=== PATIENT | male | born 1975 | race American Indian/Alaskan Native ===

== ENCOUNTER 2016-12-03 21:21 | Emergency (ER) | payer MEDICAID, OTHER ==
[2016-12-03 21:40] VITALS: BP 146/101
--- NOTE | 2016-12-03 22:36 | EDM.PDOCBH ---
ED HPI GENERAL MEDICAL PROBLEM - General Chief Complaint: Drug or Alcohol Abuse Stated Complaint: EVAL Time Seen by Provider: 12/03/16 22:00 Source of Information: Reports: Patient, Police History Limitations: Reports: Intoxication - History of Present Illness INITIAL COMMENTS - FREE TEXT/NARRATIVE: 41-year-old male who was at detox today when he complained of "feeling sick". When he was transported to the hospital is soon as they pulled up on the ramp he jumped out of the car and ran away. He was found tonight intoxicated on the street. The police brought him in. He is now waking up and wants to go back to detox. Unfortunately they will take him back because of his history of lack of cooperation and flight risk. This was explained to the patient. Onset: Unknown/Unsure - Related Data Allergies Allergy/AdvReac Type Severity Reaction Status Date / Time No Known Allergies Allergy Verified 12/03/16 21:37 Home Meds: Home Meds *Seizure Medication PO TID 12/03/16 [History] Gabapentin [Neurontin] 300 mg PO QID 12/03/16 [History] Past Medical History Neurological History: Reports: Seizure Psychiatric History: Reports: Addiction Hematologic History: Reports: None Social & Family History - Tobacco Use Smoking Status *Q: Current Every Day Smoker Years of Tobacco use: 25 Packs/Tins Daily: 1 - Alcohol Use Days Per Week of Alcohol Use: 7 Number of Drinks Per Day: 10 Total Drinks Per Week: 70 - Recreational Drug Use Recreational Drug Use: Yes ED ROS GENERAL - Review of Systems Review Of Systems: See Below Constitutional: Denies: Fever Respiratory: Denies: Shortness of Breath Cardiovascular: Denies: Chest Pain GI/Abdominal: Reports: Nausea, Vomiting Skin: Reports: No Symptoms Neurological: Denies: Headache Psychiatric: Denies: Suicidal Ideation ED EXAM, BEHAVIORAL HEALTH - Physical Exam Exam: See Below Exam Limited By: Intoxication General Appearance: Alert, No Apparent Distress Eye Exam: Bilateral Eye: EOMI, Normal Inspection (No jaundice) Respiratory/Chest: No Respiratory Distress, Lungs Clear Cardiovascular: Regular Rate, Rhythm Neurological: Alert Psychiatric: Alert, Flat Affect Skin Exam: Warm, Dry COURSE, BEHAVIORAL HEALTH COMP - Course Vital Signs: Last Vital Signs Temp 97.0 F 12/03/16 21:43 Pulse 83 12/03/16 21:43 Resp 16 12/03/16 21:43 BP 146/101 H 12/03/16 21:43 Pulse Ox 94 L 12/03/16 21:43 Re-Assessment/Re-Exam: Patient is able to ambulate on his own, went to the bathroom and is physically stable. Unfortunately detox will not take him back at this time so he wanted to leave, he was discharged with instructions not to consume any additional alcohol. Departure - Departure Time of Disposition: 22:39 Disposition: Home, Self-Care 01 Condition: Fair Clinical Impression: Alcohol intoxication Qualifiers: Complication of substance-induced condition: uncomplicated Qualified Code(s): F10.920 - Alcohol use, unspecified with intoxication, uncomplicated - Discharge Information Instructions: Alcohol Intoxication, [id number] Referrals: PCP,None [Primary Care Provider] - Forms: ED Department Discharge Care Plan Goals: I would strongly recommend that you should avoid alcohol in the future.
== END 2016-12-03 22:40 | disposition home or self-care (01) ==
LOC: JP.ED 21:21
DX: F10.920 Alcohol use, unspecified with intoxication, uncomplicated (principal); F17.210 Nicotine dependence, cigarettes, uncomplicated
CPT/HCPCS: 99284

== ENCOUNTER 2016-12-04 00:20 | Emergency (ER) | payer MEDICAID, OTHER ==
--- NOTE | 2016-12-04 01:01 | EDM.PDOCBH ---
[id number]: MEDICAL [facility] Time Seen by Provider: 12/04/16 00:30 Source of Information: Reports: EMS History Limitations: Reports: Altered Mental Status, Intoxication - History of Present Illness INITIAL COMMENTS - FREE TEXT/NARRATIVE: 41-year-old male who was just discharged from the emergency room less than an hour and a half ago walked out to [facility] and promptly drank a bottle of Listerine drinking himself unconscious. Ambulance brought him back to the emergency room. He is responding to painful stimuli, is stable but very lethargic. Patient smells very strongly of mouthwash. Onset: Unknown/Unsure - Related Data Allergies Allergy/AdvReac Type Severity Reaction Status Date / Time No Known Allergies Allergy Verified 12/04/16 11:24 Home Meds: Home Meds *Seizure Medication PO TID 12/03/16 [History] Gabapentin [Neurontin] 300 mg PO QID 12/03/16 [History] Past Medical History Neurological History: Reports: Seizure Psychiatric History: Reports: Addiction Hematologic History: Reports: None Social & Family History - Tobacco Use Smoking Status *Q: Current Every Day Smoker Years of Tobacco use: 25 Packs/Tins Daily: 1 - Alcohol Use Days Per Week of Alcohol Use: 7 Number of Drinks Per Day: 10 Total Drinks Per Week: 70 - Recreational Drug Use Recreational Drug Use: No ED ROS GENERAL - Review of Systems Review Of Systems: Unable To Obtain ED EXAM, BEHAVIORAL HEALTH - Physical Exam Exam: See Below Exam Limited By: Altered Mental Status General Appearance: Obtunded Respiratory/Chest: No Respiratory Distress, Lungs Clear Cardiovascular: Regular Rate, Rhythm Neurological: Slow Response to Commands, Withdraws to Pain Skin Exam: Warm, Dry COURSE, BEHAVIORAL HEALTH COMP - Course Vital Signs: Last Vital Signs Temp 96.2 F 12/04/16 07:40 Pulse 85 12/04/16 07:40 Resp 18 12/04/16 07:40 BP 118/59 L 12/04/16 07:40 Pulse Ox 97 12/04/16 07:40 Orders, Labs, Meds: Laboratory Tests 12/04/16 12/04/16 12/04/16 Range/Units 00:22 00:23 00:23 WBC 6.8 (4.5-11.0) K/uL RBC 4.78 (4.30-5.90) M/uL Hgb 15.7 H (12.0-15.0) g/dL Hct 44.4 (40.0-54.0) % MCV 93 (80-98) fL MCH 33 H (27-31) pg MCHC 35 (32-36) % Plt Count 233 (150-400) K/uL Neut % (Auto) 38 (36-66) % Lymph % (Auto) 46 H (24-44) % Letcher % (Auto) 12 H (2-6) % Eos % (Auto) 0 L (2-4) % Baso % (Auto) 3 H (0-1) % Sodium 145 (140-148) mmol/L Potassium 3.3 L (3.6-5.2) mmol/L Chloride 107 (100-108) mmol/L Carbon Dioxide 27 (21-32) mmol/L Anion Gap 14.3 H (5.0-14.0) mmol/L BUN 6 L (7-18) mg/dL Creatinine 0.9 (0.8-1.3) mg/dL Est Cr Clr Drug Dosing 109.27 mL/min Estimated GFR (MDRD) > 60 (>60) Glucose 112 H (74-106) mg/dL Calcium 7.6 L (8.5-10.1) mg/dL Ethyl Alcohol 452 mg/dL Medications Discontinued Medications Generic Name Dose Route Start Last Admin Trade Name Freq PRN Reason Stop Dose Admin Acetaminophen 1,000 mg 12/04/16 05:31 12/04/16 05:37 Tylenol Extra Strength PO 12/04/16 05:32 1,000 mg ONETIME ONE Administration Acetaminophen 650 mg 12/04/16 07:36 12/04/16 07:45 Tylenol PO 12/04/16 07:37 Not Given NOW ONE Ibuprofen 600 mg 12/04/16 07:45 12/04/16 07:48 Motrin PO 12/04/16 07:46 600 mg ONETIME ONE Administration Ondansetron HCl 4 mg 12/04/16 08:00 12/04/16 08:05 Zofran IM 12/04/16 08:01 4 mg ONETIME ONE Administration Re-Assessment/Re-Exam: EtOH, BMP and CBC were obtained. EtOH was 0.452. The rest of his labs were close to normal. He became more awake for a period of time, attempted to urinate and even climbed out of bed at one point stumbling to the ground. At that point we put a mat on the floor and just let him sleep it off. Patient woke up in the morning, wanted some Tylenol for his headache and some phenobarbital for his seizure that was "coming". I reviewed his records and over the last 4 months he's either been in the emergency room in [place] for alcohol intoxication, a [facility] or in senior care. We called [facility] again and they did not want to take the patient back because of his record of leaving as soon as he is admitted. This was communicated to the patient and I encouraged him to try to find a ride back to his hometown. Departure - Departure Time of Disposition: 08:21 Disposition: Home, Self-Care 01 Condition: Fair Clinical Impression: Alcohol intoxication Qualifiers: Complication of substance-induced condition: uncomplicated Qualified Code(s): F10.920 - Alcohol use, unspecified with intoxication, uncomplicated - Discharge Information Instructions: Alcohol Intoxication, [id number] Referrals: PCP,None [Primary Care Provider] - Forms: ED Department Discharge Care Plan Goals: Avoid consuming alcohol in the future.
[2016-12-04] MEDS ORDERED: Acetaminophen 500 MG Tab PO ONE (05:31)
[2016-12-04 07:40] VITALS: BP 118/59
[2016-12-04] MEDS: Acetaminophen 325 MG Tab PO ONE ×2 (07:43→07:45)
[2016-12-04] MEDS ORDERED: Ibuprofen 600 MG Tab PO ONE (07:45)
[2016-12-04] MEDS ORDERED: Ondansetron 4 MG/2 ML SDV IM ONE (08:00)
== END 2016-12-04 08:21 | disposition home or self-care (01) ==
LOC: JP.ED 00:20
DX: F10.920 Alcohol use, unspecified with intoxication, uncomplicated (principal); F17.210 Nicotine dependence, cigarettes, uncomplicated; Y90.8 Blood alcohol level of 240 mg/100 ml or more
CPT/HCPCS: 36415; 80048; 85025; 99284; A9270; G0480; J2405

== ENCOUNTER 2016-12-04 10:55 | Emergency (ER) | payer MEDICAID, OTHER ==
[2016-12-04] MEDS ORDERED: Sodium Chloride 0.9% 1,000 ML IV SCH ×2 (11:00)
--- NOTE | 2016-12-04 11:08 | EDM.PDOC ---
<Greta Gaines - Last Filed: 12/04/16 17:25> ED HPI GENERAL MEDICAL PROBLEM - General Chief Complaint: Drug or Alcohol Abuse Stated Complaint: INTOXICATED VIA [facility] Time Seen by Provider: 12/04/16 11:08 Source of Information: Reports: Patient History Limitations: Reports: No Limitations - History of Present Illness INITIAL COMMENTS - FREE TEXT/NARRATIVE: pt arrived after he had drank 2 bottles of Listerine at [place]. He was pretty much unresponsive on arrival. He did have a etoh level of nearly .4 Onset: Today Duration: Hour(s): Associated Symptoms: Reports: Other (pt does have a history of seizures. ) - Related Data Allergies Allergy/AdvReac Type Severity Reaction Status Date / Time No Known Allergies Allergy Verified 12/04/16 11:24 Home Meds: Home Meds *Seizure Medication PO TID 12/03/16 [History] Gabapentin [Neurontin] 300 mg PO QID 12/03/16 [History] Past Medical History Neurological History: Reports: Seizure Psychiatric History: Reports: Addiction Hematologic History: Reports: None Social & Family History - Tobacco Use Smoking Status *Q: Current Every Day Smoker Years of Tobacco use: 25 Packs/Tins Daily: 1 - Alcohol Use Days Per Week of Alcohol Use: 7 Number of Drinks Per Day: 10 Total Drinks Per Week: 70 - Recreational Drug Use Recreational Drug Use: No ED ROS GENERAL - Review of Systems Review Of Systems: See Below Constitutional: Reports: No Symptoms HEENT: Reports: No Symptoms Respiratory: Reports: No Symptoms Cardiovascular: Reports: No Symptoms Endocrine: Reports: No Symptoms GI/Abdominal: Reports: No Symptoms : Reports: No Symptoms Musculoskeletal: Reports: Other (pt is concerned about his seizure. ) - Physical Exam Exam: See Below Text/Narrative:: Pt arrived very obtunded. His o2 sats dropped to 70.. He was moved to an acute unit and watched closely until he ws more awake. He was supplemented with 2 liters of 02. Exam Limited By: No Limitations General Appearance: Alert, Anxious Ears: Normal TMs Nose: Normal Inspection Throat/Mouth: Normal Inspection Head Exam: Atraumatic Neck: Normal Inspection Respiratory/Chest: No Respiratory Distress Cardiovascular: Regular Rate, Rhythm GI/Abdominal: Soft, Non-Tender (Male) Exam: Deferred Rectal (Males) Exam: Deferred Neuro Exam (Abbreviated): Alert, Normal Cognition, Other (pt did become alert after some of the etoh wore off. He than ate and was up and ambulating. ) Back Exam: Normal Inspection Extremities: Normal Inspection Psychiatric: Anxious Course - Vital Signs Last Recorded V/S: Last Vital Signs Temp 98.2 F 12/05/16 02:24 Pulse 76 12/05/16 02:24 Resp 16 12/05/16 02:24 BP 104/49 L 12/05/16 02:24 Pulse Ox 97 12/05/16 02:24 - Orders/Labs/Meds Orders: Active Orders 24 hr Category Date Time Status DRUG SCREEN, URINE [URCHEM] Stat Lab 12/05/16 06:21 Uncollected LORazepam [Ativan] Med 12/05/16 08:21 Active 1 mg PO Q4H PRN Medication Orders Sodium Chloride (Normal Saline) 1,000 mls @ 999 mls/hr IV ASDIRECTED JUAN Last Admin: 12/04/16 11:40 Dose: 999 mls/hr Sodium Chloride (Normal Saline) 1,000 mls @ 999 mls/hr IV ASDIRECTED JUAN Last Admin: 12/04/16 12:44 Dose: 999 mls/hr Lorazepam (Ativan) 1 mg PO Q4H PRN PRN Reason: Anxiety Last Admin: 12/05/16 08:32 Dose: 1 mg Labs: Laboratory Tests 12/04/16 12/04/16 12/05/16 Range/Units 11:07 12:20 06:32 WBC 5.8 (4.5-11.0) K/uL RBC 4.01 L (4.30-5.90) M/uL Hgb 13.4 D (12.0-15.0) g/dL Hct 37.1 L (40.0-54.0) % MCV 93 (80-98) fL MCH 33 H (27-31) pg MCHC 36 (32-36) % Plt Count 185 (150-400) K/uL Neut % (Auto) 64 (36-66) % Lymph % (Auto) 20 L (24-44) % Holt % (Auto) 12 H (2-6) % Eos % (Auto) 2 (2-4) % Baso % (Auto) 3 H (0-1) % Sodium (140-148) mmol/L Potassium (3.6-5.2) mmol/L Chloride (100-108) mmol/L Carbon Dioxide (21-32) mmol/L Anion Gap (5.0-14.0) mmol/L BUN (7-18) mg/dL Creatinine (0.8-1.3) mg/dL Est Cr Clr Drug Dosing mL/min Estimated GFR (MDRD) (>60) Glucose (74-106) mg/dL Calcium (8.5-10.1) mg/dL Total Bilirubin (0.2-1.0) mg/dL AST (15-37) U/L ALT (12-78) U/L Alkaline Phosphatase (46-116) U/L Total Protein (6.4-8.2) g/dL Albumin (3.4-5.0) g/dL Globulin (2.3-3.5) g/dL Albumin/Globulin Ratio (1.2-2.2) Ethyl Alcohol 397 366 mg/dL 12/05/16 12/05/16 Range/Units 06:32 06:32 WBC (4.5-11.0) K/uL RBC (4.30-5.90) M/uL Hgb (12.0-15.0) g/dL Hct (40.0-54.0) % MCV (80-98) fL MCH (27-31) pg MCHC (32-36) % Plt Count (150-400) K/uL Neut % (Auto) (36-66) % Lymph % (Auto) (24-44) % Holt % (Auto) (2-6) % Eos % (Auto) (2-4) % Baso % (Auto) (0-1) % Sodium 140 (140-148) mmol/L Potassium 3.3 L (3.6-5.2) mmol/L Chloride 105 (100-108) mmol/L Carbon Dioxide 29 (21-32) mmol/L Anion Gap 9.3 (5.0-14.0) mmol/L BUN 4 L (7-18) mg/dL Creatinine 0.7 L (0.8-1.3) mg/dL Est Cr Clr Drug Dosing 140.84 mL/min Estimated GFR (MDRD) > 60 (>60) Glucose 76 (74-106) mg/dL Calcium 7.7 L (8.5-10.1) mg/dL Total Bilirubin 0.9 (0.2-1.0) mg/dL AST 105 H (15-37) U/L ALT 99 H (12-78) U/L Alkaline Phosphatase 70 (46-116) U/L Total Protein 7.0 (6.4-8.2) g/dL Albumin 3.1 L (3.4-5.0) g/dL Globulin 3.9 H (2.3-3.5) g/dL Albumin/Globulin Ratio 0.8 L (1.2-2.2) Ethyl Alcohol 4 mg/dL Meds: Medications Generic Name Dose Route Start Last Admin Trade Name Freq PRN Reason Stop Dose Admin Sodium Chloride 1,000 mls @ 999 mls/hr 12/04/16 11:00 12/04/16 11:40 Normal Saline IV 999 mls/hr ASDIRECTED JUAN Administration Sodium Chloride 1,000 mls @ 999 mls/hr 12/04/16 11:00 12/04/16 12:44 Normal Saline IV 999 mls/hr ASDIRECTED JUAN Administration Lorazepam 1 mg 12/05/16 08:21 12/05/16 08:32 Ativan PO 1 mg Q4H PRN Administration Anxiety Discontinued Medications Generic Name Dose Route Start Last Admin Trade Name Freq PRN Reason Stop Dose Admin Acetaminophen 1,000 mg 12/05/16 02:16 12/05/16 02:19 Tylenol Extra Strength PO 12/05/16 02:17 1,000 mg ONETIME ONE Administration Acetaminophen 650 mg 12/05/16 08:21 12/05/16 08:32 Tylenol PO 12/05/16 08:22 650 mg NOW ONE Administration Diphenhydramine HCl 25 mg 12/04/16 20:35 12/04/16 20:40 Benadryl IM 12/04/16 20:36 25 mg ONETIME ONE Administration Diphenhydramine HCl Confirm 12/04/16 20:37 12/04/16 20:47 Benadryl Administered 12/04/16 20:38 Not Given Dose 50 mg .ROUTE .STK-MED ONE Gabapentin 600 mg 12/04/16 17:24 12/04/16 17:40 Neurontin PO 12/04/16 17:25 600 mg ONETIME ONE Administration Haloperidol Lactate 5 mg 12/04/16 20:30 12/04/16 20:40 Haldol IM 12/04/16 20:31 5 mg ONETIME ONE Administration Haloperidol Lactate 5 mg 12/04/16 21:39 12/04/16 21:44 Haldol IM 12/04/16 21:40 5 mg ONETIME ONE Administration Haloperidol Lactate 5 mg 12/05/16 04:32 12/05/16 04:35 Haldol IM 12/05/16 04:33 5 mg ONETIME ONE Administration Lorazepam 1 mg 12/04/16 15:35 12/04/16 15:45 Ativan PO 12/04/16 15:36 1 mg ONETIME ONE Administration Lorazepam 1 mg 12/04/16 17:01 12/04/16 17:31 Ativan PO 12/04/16 17:02 1 mg ONETIME ONE Administration Lorazepam 0.5 mg 12/04/16 18:11 Ativan IVPUSH 12/04/16 18:12 ONETIME ONE Lorazepam 1 mg 12/04/16 18:13 12/04/16 18:28 Ativan PO 12/04/16 18:14 1 mg ONETIME ONE Administration Lorazepam 2 mg 12/04/16 20:31 12/04/16 20:40 Ativan IM 12/04/16 20:32 2 mg ONETIME ONE Administration Lorazepam 1 mg 12/05/16 00:24 12/05/16 00:29 Ativan PO 12/05/16 00:25 1 mg ONETIME ONE Administration Lorazepam 1 mg 12/05/16 02:26 12/05/16 02:31 Ativan PO 12/05/16 02:27 1 mg ONETIME ONE Administration Lorazepam 2 mg 12/05/16 04:33 12/05/16 04:36 Ativan IM 12/05/16 04:34 2 mg ONETIME ONE Administration Midazolam HCl 2 mg 12/04/16 18:34 12/04/16 19:03 Versed 1 Mg/Ml IM 12/04/16 18:35 2 mg ONETIME ONE Administration Midazolam HCl 4 mg 12/04/16 20:02 12/04/16 20:06 Versed 1 Mg/Ml IVPUSH 12/04/16 20:03 4 mg ONETIME ONE Administration Ondansetron HCl 4 mg 12/04/16 18:10 12/04/16 18:28 Zofran IM 12/04/16 18:11 4 mg ONETIME ONE Administration - Re-Assessments/Exams Free Text/Narrative Re-Assessment/Exam: 12/04/16 17:34 pt has been our hosp three times after drinking listerine and as a result has ended up with a high etoh level. A 72 hour hold was placed on the pt because he has been found unrespnsive [address] Departure - Departure Disposition: DC/Tfer to [facility] Clinical Impression: Alcohol abuse - Discharge Information Forms: ED Department Discharge - My Orders Last 24 Hours: My Active Orders 12/05/16 08:21 LORazepam [Ativan] 1 mg PO Q4H PRN - Assessment/Plan Last 24 Hours: My Active Orders 12/05/16 08:21 LORazepam [Ativan] 1 mg PO Q4H PRN <Dashawn Matthew - Last Filed: 12/05/16 06:55> ED HPI GENERAL MEDICAL PROBLEM - History of Present Illness INITIAL COMMENTS - FREE TEXT/NARRATIVE: Patient has responded well to Haldol and Ativan IM during my shift. He's had several doses of this medication and has settled well. Our plan is to have him transferred to a facility in [facility] if they still have a bed available but we will not know until 10 AM. <OfficerJavier - Last Filed: 12/05/16 12:43> Departure - Departure Time of Disposition: 12:42 Condition: Poor - Assessment/Plan Plan: Assessment Acuity = acute Site and laterality = alcohol abuse and intoxication Etiology = alcohol Manifestations = none Location of injury = Home Lab values = CBC unremarkable potassium low at 3.3 consistent with hypo-Veronica anemia AST elevated 105 ALTs elevated 99 consistent elevated liver enzymes albumin low at 3.1 consistent hypoalbuminemia alcohol was 397 now is 4 consistent with intoxication now resolved Plan [ We had discharge planning help with placement of this gentleman is currently on a 72 hour hold because we did not have a safe place for him to go, however we 'll go ahead lift the 72 hour hold he is a member of the [employer] tried they have agreed to do a rule 25 on him and he is also agreed to go to a homeless senior care in [place]. He is willing to go and amenable to treatment Patient was in agreement with the plan all questions were answered, they were instructed to return to the emergency department or call for worsening symptoms. This note was dictated using [employer] voice recognition software please call with any questions.
[2016-12-04] MEDS ORDERED: LORazepam 1 MG Tab PO ONE ×3 (15:35→18:13)
[2016-12-04] MEDS ORDERED: Gabapentin 300 MG Cap PO ONE (17:24)
[2016-12-04] MEDS ORDERED: Ondansetron 4 MG/2 ML SDV IM ONE (18:10)
[2016-12-04] MEDS ORDERED: LORazepam 2 MG/ML MDV IVPUSH ONE (18:11)
[2016-12-04] MEDS ORDERED: Midazolam 1 MG/ML 2 ML SDV IM ONE (18:34)
[2016-12-04] MEDS ORDERED: Midazolam 1 MG/ML 2 ML SDV IVPUSH ONE (20:02)
[2016-12-04] MEDS ORDERED: Haloperidol Lactate 5 MG/ML SDV IM ONE ×2 (20:30→21:39)
[2016-12-04] MEDS ORDERED: LORazepam 2 MG/ML MDV IM ONE (20:31)
[2016-12-04] MEDS ORDERED: diphenhydrAMINE 50 MG/ML SDV IM ONE (20:35)
[2016-12-04] MEDS ORDERED: diphenhydrAMINE 50 MG/ML SDV ONE (20:37)
[2016-12-05] MEDS ORDERED: LORazepam 1 MG Tab PO ONE ×2 (00:24→02:26)
[2016-12-05] MEDS ORDERED: Acetaminophen 500 MG Tab PO ONE (02:16)
[2016-12-05] MEDS ORDERED: Haloperidol Lactate 5 MG/ML SDV IM ONE (04:32)
[2016-12-05] MEDS ORDERED: LORazepam 2 MG/ML MDV IM ONE (04:33)
[2016-12-05] MEDS ORDERED: Acetaminophen 325 MG Tab PO ONE (08:21)
[2016-12-05] MEDS: LORazepam 1 MG Tab PO PRN ×2 (08:32→12:46)
[2016-12-05 12:42] VITALS: BP 146/81
== END 2016-12-05 14:05 ==
LOC: JP.ED 10:55
DX: F10.129 Alcohol abuse with intoxication, unspecified (principal); F17.210 Nicotine dependence, cigarettes, uncomplicated; Y90.8 Blood alcohol level of 240 mg/100 ml or more
CPT/HCPCS: 36415; 80053; 85025; 96360; 96361; 99285; A9270; G0480; J1630; J2060; J2250; J2405; J7040; 80048; 99284; J1200